=== PATIENT | female | born 1995 | race African-American/Black ===

== ENCOUNTER 2020-11-05 22:20 | Emergency (ER) | payer OTHER, SELFPAY ==
--- NOTE | 2020-11-05 | ECG_ITS ---
Test Reason : CP Blood Pressure : / mmHG Vent. Rate : 069 BPM Atrial Rate : 069 BPM P-R Int : 180 ms QRS Dur : 088 ms QT Int : 378 ms P-R-T Axes : 052 061 042 degrees QTc Int : 405 ms Normal sinus rhythm Normal ECG No previous ECGs available Referred By: Generic ED Physician Electronically Signed By:SANDI PALOMARES
--- NOTE | ~2020-11-05 | XR_ITS ---
EXAMINATION: XR CHEST CLINICAL INFORMATION: Shortness of breath and chest pain COMPARISON: None TECHNIQUE: Frontal view of the chest was obtained. FINDINGS: Question of an approximately 13 mm well-defined nonspecific nodule right upper lobe. No acute abnormality is noted involving the heart, lungs, mediastinum, bony thorax or soft tissues. XR/XR chest 1V IMPRESSION: No acute chest pathology. Question of an 13 mm nodule right upper lobe as above. Recommend elective CT for further assessment.
[2020-11-05 22:34] VITALS: BP 112/69; PULSE 74; RESP 16; TEMP 36; O2SAT 99; BMI 31.7
[2020-11-05 23:12] LABS: MANUAL DIFF FLAG NO
[2020-11-05 23:13] LABS: Basophils Percent Auto 0.4 % (0-2); Eosinophils Percent Auto 0.5 % (0-4); Hematocrit 35.5 % (37-47); Hemoglobin 11.8 g/dl (12.0-16.0); Imm Gran Abs Auto 0.01 X10*3/uL (0.00-0.03); Imm Gran Pct Auto 0.1 % (0.0-0.4); Lymphocytes Percent Auto 47.6 % (20-40); Mean Corpuscular HGB Conc 33.2 g/dl (31.0-35.0); Mean Corpuscular Hemoglobin 26.6 pg (27.0-33.0); Mean Platelet Volume 8.3 fL (9.4-12.3); Monocytes Absolute Auto 0.7 X10*3/uL (0.1-1.2); Monocytes Percent Auto 8.3 % (2-11); Neutrophils Absolute Auto 3.6 X10*3/uL (2.0-8.3); Neutrophils Percent Auto 43.1 % (45-73); Platelet Count 353 X10*3/uL (160-400); Red Blood Count 4.44 X10*6/uL (4.20-5.50); Red Cell Distribution Width 12.4 % (11.0-16.0); White Blood Count 8.3 X10*3/uL (4.8-10.8)
[2020-11-05 23:29] LABS: Anion Gap 10 (12-20); Blood Urea Nitrogen 13 mg/dL (9-16); Calcium 9.6 mg/dL (8.4-10.2); Carbon Dioxide 24 mmol/L (22-29); Chloride 109 mmol/L (96-108); Creatinine Clr Calc Pharmacy 119.6; Estimated Glomerular Filt Rate > 60; Glucose Random 94 mg/dL (60-115); Potassium 3.8 mmol/L (3.3-5.1); Sodium 139 mmol/L (135-145)
[2020-11-05 23:34] LABS: Troponin-I High Sensitivity < 3.5 ng/L (<3.5-17.0)
[2020-11-06 00:36] VITALS: BP 123/77; PULSE 63; RESP 16; O2SAT 99
[2020-11-06] MEDS: Ibuprofen 600 MG TABLET PO (00:39)
--- NOTE | 2020-11-06 00:53 | ED_ITS ---
HPI - Chest Pain General Chief Complaint: Chest Pain Stated Complaint: cp, diff breathing Time Seen by Provider: 11/06/20 00:15 Source: patient Mode of arrival: ambulatory Limitations: no limitations History of Present Illness HPI narrative: 25 y/o healthy female presenting with substernal chest pain and SOB that started at 7pm this evening. She reports the pain is central and does not radiate. She is slightly short of breath when it started but that has improved. She laid down for an hour but the pain didnt improve so she came to the ER for evaluation. Pain improved from a 9/10 to a 5/10. It is worse with mov ement. No N/V/D, abd pain, diaphoresis. No personal or family hx blood clots. Not on OCP. MD complaint: chest pain Onset (ago): hour(s) (4) Timing of current episode: constant Onset: during rest Pain location: substernal Pain radiation: none Severity: moderate Quality: aching Relieving factors: nothing Exacerbating factors: movement Treatment prior to arrival: none Risk Factors Coronary artery disease risk factors: none Thoracic aortic dissection risk factors: none Related Data On Oral Contraceptives: No Allergies Allergy/AdvReac Type Severity Reaction Status Date / Time No Known Allergies Allergy Unverified 11/05/20 22:41 [No Known Allergies*] Review of Systems Review of Systems: Constitutional: No Fever, No Chills ENT/Mouth: No sore throat, No Rhinorrhea, No Swallowing Difficulty Cardiovascular: + Chest Pain, + SOB, No Orthopnea, No Edema Respiratory: No Cough, No Sputum, No Wheezing, No dyspnea Gastrointestinal: No Nausea, No Vomiting, No Diarrhea, No abdominal Pain Genitourinary: No Dysuria, No Urinary Frequency, No Hematuria Musculoskeletal: No joint pain, No Myalgias Skin: No Skin Lesions, No rash Neuro: No Weakness, No Numbness, No Dizziness, + Headache Psych: + Anxiety/Panic, No Depression Heme/Lymph: No Bruising, No Lymphadenopathy PMFSH Past Medical History Attestation statement: The following information was validated with the patient. Medical History (Updated 11/06/20 @ 01:48 by RAJINDER Nichols) No known health problems Social History Social History Advance Directives: No Advance Directives Information Provided: No Patient : No Physical Exam Vital Signs: Vital Signs: Last Vital Signs Temp 96.8 F 11/05/20 22:34 Pulse 63 11/06/20 00:36 Resp 16 11/06/20 00:36 BP 123/77 11/06/20 00:36 Pulse Ox 99 11/06/20 00:36 Body Mass Index 31.7 Appearance: Alert. Oriented X3. No acute distress. Eyes: Pupils equal, round and reactive to light. ENT: Pharynx normal. Neck: Normal inspection. Neck supple. CVS: Normal heart rate and rhythm. Pulses normal. Respiratory: No respiratory distress. Breath sounds normal. Mild central chest wall tenderness. Abdomen: Soft and nontender. +BS x4 Skin: Skin warm and dry. Normal skin color. Normal skin turgor. No rashes. Extremities: No lower extremity edema. Neuro: Oriented X 3. No motor deficit. No sensory deficit. Course Course Course Narrative: 25 y/o female presenting with nonradiating central chest pain for the last few hours, worse with movement. Slight SOB with increased stress at home. She is in no resp distress and vitals are stable. CXR, EKG, labs ordered. Reevaluation(s) Reevaluation #1: CXR No acute chest pathology. Question of an 13 mm nodule right upper lobe as above. Recommend elective CT for further assessment. Results d/w patient. DDIMER negative. Troponin negative. EKG normal. Pain improved with motrin. Sleeping comfortably. Stable for d/c home with trial of NSAIDS. She will f/u with PCP for repeat CXR vs CT chest, not likely to be causing her any pain. MDM - Chest Pain Medical Records Data Attestation: I reviewed the patient's medical records. Lab Data Attestation: I reviewed the patient's lab results. Result diagrams: 11/05/20 23:07 11/05/20 23:07 Labs: Lab Results 11/05/20 11/05/20 11/05/20 Range/Units 23:07 23:07 23:07 WBC 8.3 (4.8-10.8) X10*3/uL RBC 4.44 (4.20-5.50) X10*6/uL Hgb 11.8 L (12.0-16.0) g/dl Hct 35.5 L (37-47) % MCV 80.0 (80-98) fL MCH 26.6 L (27.0-33.0) pg MCHC 33.2 (31.0-35.0) g/dl RDW 12.4 (11.0-16.0) % Plt Count 353 (160-400) X10*3/uL MPV 8.3 L (9.4-12.3) fL Immature Gran % (Auto) 0.1 (0.0-0.4) % Neut % (Auto) 43.1 L (45-73) % Lymph % (Auto) 47.6 H (20-40) % [place] % (Auto) 8.3 (2-11) % Eos % (Auto) 0.5 (0-4) % Baso % (Auto) 0.4 (0-2) % Lymph # (Auto) 4.0 (1.2-4.9) X10*3/uL [place] # (Auto) 0.7 (0.1-1.2) X10*3/uL Eos # (Auto) 0.0 (0.0-0.4) X10*3/uL Baso # (Auto) 0.0 (0.0-0.2) X10*3/uL Abs Immat Gran (auto) 0.01 (0.00-0.03) X10*3/uL Absolute Neuts (auto) 3.6 (2.0-8.3) X10*3/uL Absolute Nucleated RBC 0.000 (0.0-0.012) X10*3/uL Nucleated RBC % (auto) 0.0 (0.0-0.2) /100WBC D-Dimer NG/ML Sodium 139 (135-145) mmol/L Potassium 3.8 (3.3-5.1) mmol/L Chloride 109 H (96-108) mmol/L Carbon Dioxide 24 (22-29) mmol/L Anion Gap 10 L (12-20) BUN 13 (9-16) mg/dL Creatinine 0.74 (0.5-1.4) mg/dL Estim Creat Clear Calc 119.6 Estimated GFR > 60 Random Glucose 94 (60-115) mg/dL Calcium 9.6 (8.4-10.2) mg/dL Troponin I High Sens < 3.5 (<3.5-17.0) ng/L COVID-19 (RYAN) (Negative) COVID-19 Clin Com 11/06/20 11/06/20 Range/Units 00:45 00:46 WBC (4.8-10.8) X10*3/uL RBC (4.20-5.50) X10*6/uL Hgb (12.0-16.0) g/dl Hct (37-47) % MCV (80-98) fL MCH (27.0-33.0) pg MCHC (31.0-35.0) g/dl RDW (11.0-16.0) % Plt Count (160-400) X10*3/uL MPV (9.4-12.3) fL Immature Gran % (Auto) (0.0-0.4) % Neut % (Auto) (45-73) % Lymph % (Auto) (20-40) % [place] % (Auto) (2-11) % Eos % (Auto) (0-4) % Baso % (Auto) (0-2) % Lymph # (Auto) (1.2-4.9) X10*3/uL [place] # (Auto) (0.1-1.2) X10*3/uL Eos # (Auto) (0.0-0.4) X10*3/uL Baso # (Auto) (0.0-0.2) X10*3/uL Abs Immat Gran (auto) (0.00-0.03) X10*3/uL Absolute Neuts (auto) (2.0-8.3) X10*3/uL Absolute Nucleated RBC (0.0-0.012) X10*3/uL Nucleated RBC % (auto) (0.0-0.2) /100WBC D-Dimer 223 NG/ML Sodium (135-145) mmol/L Potassium (3.3-5.1) mmol/L Chloride (96-108) mmol/L Carbon Dioxide (22-29) mmol/L Anion Gap (12-20) BUN (9-16) mg/dL Creatinine (0.5-1.4) mg/dL Estim Creat Clear Calc Estimated GFR Random Glucose (60-115) mg/dL Calcium (8.4-10.2) mg/dL Troponin I High Sens (<3.5-17.0) ng/L COVID-19 (RYAN) Negative (Negative) COVID-19 Clin Com See Note ECG Data ECG #1: Attestation: I personally reviewed and interpreted this ECG as follows: ECG interpretation date: 11/06/20 ECG interpretation time: 02:01 Interpretation: normal sinus rhythm, HR 69 bpm, normal FL interval, normal QRS, no ST segment elevations or depressions Scores Heart Score History: -0- slightly suspicious ECG: -0- normal Age: -0- < or = 45 Risk factory: -0- no risk factors known Troponin: -0- < or = normal limit Score: 0 Risk: 1.7% Discharge Plan Discharge Clinical Impression: Chest pain Qualifiers: Chest pain type: other chest pain Qualified Code(s): R07.89 - Other chest pain Patient Disposition: Home, Self-Care Instructions: Chest Pain (ED) Additional Instructions: Your lab workup today was normal. Your chest x-ray showed a question of a possible nodule. Recommend following up with your doctor for repeat chest x-ray or CAT scan in the future. Recommend rest. No heavy lifting. Your pain may be muscular Take Motrin and/or Tylenol as needed for pain. Follow up with your doctor this week. If you develop new or worsening symptoms call 911 or come back to the ER for further evaluation.
[2020-11-06 01:10] LABS: COVID-19 Test Negative (Negative); IDNOW Serial# 08D9AD1C
[2020-11-06 01:16] LABS: D Dimer 223 NG/ML
--- NOTE | 2020-11-06 02:03 | PC.NURSE ---
PT RESTING IN BED, REPORTS PAIN IS ALMOST RESOLVED. PT RESTING ON STRETCHER IN LLR POSITION. NO REPORT OF DYSPNEA OR NAUSEA.
== END 2020-11-06 02:04 | disposition home or self-care (01) ==
PROVIDERS: Physician Assistant; Emergency Provider Internal Medicine
DX: R07.89 Other chest pain (principal); Z20.822 Contact with and (suspected) exposure to COVID-19; R06.02 Shortness of breath
CPT/HCPCS: 36415; 71045; 80048; 84484; 85025; 85379; 87635; 93005; 99284

== ENCOUNTER 2022-05-25 23:38 | Emergency (ER) | payer OTHER, SELFPAY ==
--- NOTE | ~2022-05-25 | XR_ITS ---
EXAMINATION: XR CHEST CLINICAL INFORMATION: Shortness of breath COMPARISON: 11/05/2020 TECHNIQUE: 2 views of the chest were obtained. FINDINGS: No significant abnormality is noted involving the heart, lungs, mediastinum, bony thorax or soft tissues. Previously seen 13 mm right upper lobe nodule is not seen on the current exam. XR/XR chest 2V IMPRESSION: No acute intrathoracic disease.
[2022-05-25 23:46] VITALS: BP 109/74; PULSE 116; RESP 16; TEMP 36.6; O2SAT 98; BMI 30.9
--- OUTSIDE RECORDS SUMMARY | 2022-05-26 00:15 | XMS_ITS | Continuity of Care Document ---
Author Name Unknown Organization [facility] Address [address] [place] [address]- Care Team Providers Care Environmental Services Associate Name Role Phone Janessa Rowland MD Primary Care Physician [phone] Encounter [facility] [place] Date(s): 05/17/20 - 06/16/[address] [address]- Attending Physician: Gideon Davis Admitting Physician: AdmtrGideon Referring Physician: Admtr, Gideon Allergies, Adverse Reactions, Alerts Substance Reaction Severity Status NKA Active Medications acetaminophen 325 mg oral tablet 650 mg, By Mouth, Every 4 hours, PRN, (1-3), may give 325mg per patient preference and re-dose [id number] within 4 hours, if needed. Patient should only receive a total of 650mg of Acetaminophen every 4 hours., # 40 tablet, Refills 0, Tot. Refills 0... Start Date: 12/24/19 Status: Ordered docusate sodium 100 mg oral capsule 100 mg, 1, capsule, By Mouth, 2 times a day, # 60 capsule, Refills 0, Tot. Refills 0, Maintenance, 12/24/19 6:46:00 EDT, Route to Pharmacy Electronically, [facility] #[id number], 162, cm, 12/24/19 1:10:00 EDT, Height, 95.5, kg, 12/22/19 23:12:00... Start Date: 12/24/19 Status: Ordered ibuprofen 800 mg oral tablet 800 mg, 1, tablet, By Mouth, Every 8 hours, PRN, (4-6), may give 400mg per patient preference and re-dose with 400mg within 8 hours if needed. Patient should only receive a total of 800mg of Ibuprofen every 8 hours., # 30 tablet, Refills 0, Tot. Ref... Start Date: 12/24/19 Status: Ordered MiraLax oral powder for reconstitution = 17 Gm, By Mouth, Daily, PRN Constipation, dissolve in water before taking, # 527 Gm, 0 Refills, Maintenance, 10/28/19 10:57:00 EDT, REC Powder, [facility] #[id number], 17 Gm By Mouth Daily,PRN:Constipation,Instr:dissolve in water before taking,... Start Date: 10/28/19 Status: Ordered Multivitamins with Folic Acid 1 mg oral capsule See Instructions, TAKE ONE DAILY BY MOUTH, # 100 capsule, 2 Refills, Maintenance, 04/28/19 14:25:00EST, [facility] #[id number], TAKE ONE DAILY BY MOUTH, 163, cm, 10/19/18 12:36:00 EDT, Height, 90, kg, 09/05/18 5:39:00 EDT, Dry Weight Start Date: 04/28/19 Status: Ordered Proctozone HC 2.5% topical cream 1 applicator, Topically, 3 times a day, apply in a thin film to the affected skin and rub in gentlyand completely, # 30 Gm, 0 Refills, Maintenance, 10/28/19 11:00:00 EDT, [facility] #[id number], 1 applicator Topically 3 times a day,Instr:apply i... Start Date: 10/28/19 Status: Ordered Valtrex 500 mg oral tablet 500 mg, 1, tablet, By Mouth, Every 12 hours, # 60 tablet, Refills 0, Tot. Refills 0, Maintenance, 12/02/19 10:21:00 EDT, Route to Pharmacy Electronically, [facility] #[id number], 163, cm, 12/02/19 9:52:00 EDT, Height, 90, kg, 09/05/18 5:39:00 EDT... Start Date: 12/02/19 Status: Ordered Problem List Condition Effective Dates Status Health Status Inform ant H/O seasonal allergies(Confirmed) Active Constipation(Confirmed) Active Advent or spiritual belie fs affecting medical care(Confirmed) Active History of polyhydramnios(Confirmed) Active Hemorrhoid(Confirmed) Active Currently (Confirmed) Active H/O Maternal varicella(Confirmed) 01/2018 Active Social History Social History Type Response Smoking Status Former smoker, quit more than 30 days ago entered on: 09/04/18 Sex Female
--- OUTSIDE RECORDS SUMMARY | 2022-05-26 00:15 | XMS_ITS | Continuity of Care Document ---
Author Name Unknown Organization [facility] Address [address] [place] [address]- Care Team Providers Care Hydraulic Assembler Name Role Phone Janessa Rowland MD Primary Care Physician [phone] [place] [facility] [place] 03/15/20 - 04/15/20 [facility] [address] [place] [address]- Attending Physician: Iftikhar GIANG, Sravan James Allergies, Adverse Reactions, Alerts Substance Reaction Severity Status NKA Active Medications acetaminophen 325 mg oral tablet 650 mg, By Mouth, Every 4 hours, PRN, (1-3), may give 325mg per patient preference and re-dose [id number] within 4 hours, if needed. Patient should only receive a total of 650mg of Acetaminophen every 4 hours., # 40 tablet, Refills 0, Tot. Refills 0... Start Date: 12/24/19 Status: Ordered docusate sodium 100 mg oral capsule 100 mg, 1, capsule, By Mouth, 2 times a day, # 60 capsule, Refills 0, Tot. Refills 0, Maintenance, 12/24/19 6:46:00 EDT, Route to Pharmacy Electronically, [facility] #[id number], 162, cm, 12/24/19 1:10:00 EDT, Height, 95.5, [...] Refills, Maintenance, 10/28/19 10:57:00 EDT, REC Powder, [facility] #[id number], 17 Gm By Mouth Daily,PRN:Constipation,Instr:dissolve in water before taking,... Start Date: 10/28/19 Status: Ordered Multivitamins with Folic Acid 1 mg oral capsule See Instructions, TAKE ONE DAILY BY MOUTH, # 100 capsule, 2 Refills, Maintenance, 04/28/19 14:25:00EST, [facility] #[id number], TAKE ONE DAILY BY MOUTH, 163, cm, 10/19/18 12:36:00 EDT, Height, 90, kg, 09/05/18 5:39:00 EDT, Dry Weight Start Date: 04/28/19 Status: Ordered Proctozone HC 2.5% topical cream 1 applicator, Topically, 3 times a day, apply in a thin film to the affected skin and rub in gentlyand completely, # 30 Gm, 0 Refills, Maintenance, 10/28/19 11:00:00 EDT, [facility] #[id number], 1 applicator Topically 3 times a day,Instr:apply i... Start Date: 10/28/19 Status: Ordered Valtrex 500 mg oral tablet 500 mg, 1, tablet, By Mouth, Every 12 hours, # 60 tablet, Refills 0, Tot. Refills 0, Maintenance, 12/02/19 10:21:00 EDT, Route to Pharmacy Electronically, [facility] #[id number], 163, cm, 12/02/19 9:52:00 EDT, Height, 90, kg, 09/05/18 5:39:00 EDT... Start Date: 12/02/19 Status: Ordered Problem List Condition Effective Dates Status Health Status Inform ant H/O seasonal allergies(Confirmed) Active Constipation(Confirmed) Active Mu-Ism or spiritual belie fs affecting medical care(Confirmed) Active History of polyhydramnios(Confirmed) Active Hemorrhoid(Confirmed) Active Currently (Confirmed) Active H/O Maternal varicella(Confirmed) 01/2018 Active Social History Social History Type Response Smoking Status Former smoker, quit more than 30 days ago entered on: 09/04/18 Sex Female
--- OUTSIDE RECORDS SUMMARY | 2022-05-26 00:15 | XMS_ITS | Continuity of Care Document ---
Author Name Unknown Organization [facility] Address [address] [place] [address]- Care Team Providers Care Mold Washer Name Role Phone Janessa Rowland MD Primary Care Physician [phone] Encounter [facility] [place] Date(s): 03/15/20 - 04/14/20 [facility] [address] [place] [address]- Allergies, Adverse Reactions, Alerts Substance Reaction Severity Status NKA Active Medications acetaminophen 325 mg oral tablet 650 mg, By Mouth, Every 4 hours, PRN, (1-3), may give 325mg per patient preference and re-dose [id number] within 4 hours, if needed. Patient should only receive a total of 650mg of Acetaminophen every 4 hours., # 40 tablet, Refills 0, Tot. Refills 0... Start Date: 12/24/19 Status: Ordered docusate sodium 100 mg oral capsule 100 mg, 1, capsule, By Mouth, 2 times a day, # 60 capsule, Refills 0, Tot. Refills 0, Maintenance, 12/24/19 6:46:00 EDT, Route to Pharmacy Electronically, [facility] #[id number], 162, cm, 12/24/19 1:10:00 EDT, Height, 95.5, [...] Refills, Maintenance, 10/28/19 10:57:00 EDT, REC Powder, [facility] #[id number], 17 Gm By Mouth Daily,PRN:Constipation,Instr:dissolve in water before taking,... Start Date: 10/28/19 Status: Ordered Multivitamins with Folic Acid 1 mg oral capsule See Instructions, TAKE ONE DAILY BY MOUTH, # 100 capsule, 2 Refills, Maintenance, 04/28/19 14:25:00EST, [facility] #[id number], TAKE ONE DAILY BY MOUTH, 163, cm, 10/19/18 12:36:00 EDT, Height, 90, kg, 09/05/18 5:39:00 EDT, Dry Weight Start Date: 04/28/19 Status: Ordered Proctozone HC 2.5% topical cream 1 applicator, Topically, 3 times a day, apply in a thin film to the affected skin and rub in gentlyand completely, # 30 Gm, 0 Refills, Maintenance, 10/28/19 11:00:00 EDT, [facility] #[id number], 1 applicator Topically 3 times a day,Instr:apply i... Start Date: 10/28/19 Status: Ordered Valtrex 500 mg oral tablet 500 mg, 1, tablet, By Mouth, Every 12 hours, # 60 tablet, Refills 0, Tot. Refills 0, Maintenance, 12/02/19 10:21:00 EDT, Route to Pharmacy Electronically, [facility] #[id number], 163, cm, 12/02/19 9:52:00 EDT, Height, 90, kg, 09/05/18 5:39:00 EDT... Start Date: 12/02/19 Status: Ordered Problem List Condition Effective Dates Status Health Status Inform ant H/O seasonal allergies(Confirmed) Active Constipation(Confirmed) Active Buddhism or spiritual belie fs affecting medical care(Confirmed) Active History of polyhydramnios(Confirmed) Active Hemorrhoid(Confirmed) Active Currently (Confirmed) Active H/O Maternal varicella(Confirmed) 01/2018 Active Social History Social History Type Response Smoking Status Former smoker, quit more than 30 days ago entered on: 09/04/18 Sex Female
--- OUTSIDE RECORDS SUMMARY | 2022-05-26 00:15 | XMS_ITS | Continuity of Care Document ---
Author Name Unknown Organization [facility] Address [address] [place] [address]- Care Team Providers Care Education And Development Manager Name Role Phone Janessa Rowland MD Primary Care Physician Encounter [facility] [place] Date(s): 09/07/19 - 10/07/19 [facility] [address] [address]- [facility] Allergies, Adverse Reactions, Alerts Substance Reaction Severity Status NKA Active Medications Multivitamins with Folic Acid 1 mg oral capsule See Instructions, TAKE ONE DAILY BY MOUTH, # 100 capsule, 2 Refills, Maintenance, 04/28/19 14:25:00EST, [facility] #[id number], TAKE ONE DAILY BY MOUTH, 163, cm, 10/19/18 12:36:00 EDT, Height, 90, kg, 09/05/18 5:39:00 EDT, Dry Weight Start Date: 04/28/19 Status: Ordered Tylenol 325 mg oral capsule 2 capsule = 650 mg, By Mouth, Every 4 hours, PRN as needed for fever, # 90 capsule, 0 Refills, Maintenance, 09/07/18 10:54:10 EDT, Capsule Start Date: 09/07/18 Status: Ordered Problem List Condition Effective Dates Status Health Status Inform ant H/O seasonal allergies(Confirmed) Active Constipation(Confirmed) Active HSV infection(Confirmed) Active Currently (Confirmed) Active H/O Rubella non-immune status(Confirmed) 01/2018 Active H/O Maternal varicella(Confirmed) 01/2018 Active Social History Social History Type Response Smoking Status Former smoker, quit more than 30 days ago entered on: 09/04/18 Sex Female
--- OUTSIDE RECORDS SUMMARY | 2022-05-26 00:15 | XMS_ITS | Continuity of Care Document ---
Author Name Unknown Organization [facility] Address [address] [place] [address]- Care Team Providers Care Renovator Machine Operator Name Role Phone Janessa Rowland MD Primary Care Physician [place] [facility] [place] - 12/24/[address] [address]- [facility] Discharge Disposition: A-D/C Home Attending Physician: Maria De Jesus Pritchard MD Admitting Physician: Maria De Jesus Pritchard MD Referring Physician: Maria De Jesus Pritchard MD Allergies, Adverse Reactions, Alerts Substance Reaction Severity Status NKA Active Medications acetaminophen 325 mg oral tablet 650 mg, By Mouth, Every 4 hours, PRN, (1-3), may give 325mg per patient preference and re-dose [id number] within 4 hours, if needed. Patient should only receive a total of 650mg of Acetaminophen every 4 hours., # 40 tablet, Refills 0, Tot. Refills 0... Start Date: 12/24/19 Status: Ordered docusate sodium 100 mg oral capsule 100 mg, 1, capsule, By Mouth, 2 times a day, # 60 capsule, Refills 0, Tot. Refills 0, Maintenance, 12/24/19 6:46:00 EDT, Route to Pharmacy Electronically, [facility] #[id number], 162, cm, 12/24/19 1:10:00 EDT, Height, 95.5, [...] Refills, Maintenance, 10/28/19 10:57:00 EDT, REC Powder, [facility] #[id number], 17 Gm By Mouth Daily,PRN:Constipation,Instr:dissolve in water before taking,... Start Date: 10/28/19 Status: Ordered Multivitamins with Folic Acid 1 mg oral capsule See Instructions, TAKE ONE DAILY BY MOUTH, # 100 capsule, 2 Refills, Maintenance, 04/28/19 14:25:00EST, [facility] #[id number], TAKE ONE DAILY BY MOUTH, 163, cm, 10/19/18 12:36:00 EDT, Height, 90, kg, 09/05/18 5:39:00 EDT, Dry Weight Start Date: 04/28/19 Status: Ordered Proctozone HC 2.5% topical cream 1 applicator, Topically, 3 times a day, apply in a thin film to the affected skin and rub in gentlyand completely, # 30 Gm, 0 Refills, Maintenance, 10/28/19 11:00:00 EDT, [facility] #[id number], 1 applicator Topically 3 times a day,Instr:apply i... Start Date: 10/28/19 Status: Ordered Valtrex 500 mg oral tablet 500 mg, 1, tablet, By Mouth, Every 12 hours, # 60 tablet, Refills 0, Tot. Refills 0, Maintenance, 12/02/19 10:21:00 EDT, Route to Pharmacy Electronically, [facility] #[id number], 163, cm, 12/02/19 9:52:00 EDT, Height, 90, kg, 09/05/18 5:39:00 EDT... Start Date: 12/02/19 Status: Ordered Problem List Condition Effective Dates Status Health Status Inform ant H/O seasonal allergies(Confirmed) Active Constipation(Confirmed) Active Christianity or spiritual belie fs affecting medical care(Confirmed) Active History of polyhydramnios(Confirmed) Active Hemorrhoid(Confirmed) Active Currently (Confirmed) Active H/O Maternal varicella(Confirmed) 01/2018 Active Vital Signs Most recent to oldest [Reference Range]: 1 2 3 Height 162 cm (12/24/19 9:30 AM) 162 cm (12/24/19 12:00 AM) 162 cm (12/23/19 3:55 PM) Weight 95.5 kg (12/22/19 10:56 PM) Oxygen Saturation [94-100 %] 96 % (12/24/19 12:00 AM) 99 % (12/23/19 3:30 AM) Pulse Rate [55-90 bpm] 86 bpm (12/24/19 9:30 AM) 85 bpm (12/24/19 12:00 AM) 88 bpm (12/23/19 3:55 PM) Body Mass Index [18.5-24.99] 36.39 *>HHI* (12/22/19 10:56 PM) Blood Pressure [90-138/55-84 mm Hg] 122/76mm Hg (12/24/19 9:30 AM) 118/71mm Hg (12/24/19 12:00 AM) 117/65mm Hg (12/23/19 3:55 PM) Respiratory Rate [16-30 br/min] 18 br/min (12/24/19 9:30 AM) 18 br/min (12/24/19 2:35 AM) 18 br/min (12/24/19 2:35 AM) Temperature [96.8-100.4 DegF] 98.4 DegF (12/24/19 9:30 AM) 98.0 DegF (12/24/19 12:00 AM) 97.8 DegF (12/23/19 3:55 PM) Mode of Delivery (Oxygen) Room air (12/24/19 12:00 AM) Room air (12/23/19 3:30 AM) Room air (12/22/19 9:38 PM) Blood pressure sites Arm, right (12/23/19 3:55 PM) Arm, right (12/23/19 9:30 AM) Arm, right (12/22/19 10:56 PM) Temperature Route Oral (12/24/19 9:30 AM) Oral (12/24/19 12:00 AM) Oral (12/23/19 3:55 PM) Dry Weight 95.5 kg (12/22/19 10:56 PM) Social History Social History Type Response Smoking Status Former smoker, quit more than 30 days ago entered on: 09/04/18 Sex Female
--- OUTSIDE RECORDS SUMMARY | 2022-05-26 00:15 | XMS_ITS | Continuity of Care Document ---
Author Name Unknown Organization [facility] Address [address] [place] [address]- Care Team Providers Care Molding Utility Worker Name Role Phone Janessa Rowland MD Primary Care Physician [phone] [place] [facility] [place] - 03/03/[address] [address]- Attending Physician: Gideon Davis Admitting Physician: Gideon Davis Referring Physician: Gideon Davis Allergies, Adverse Reactions, Alerts Substance Reaction Severity Status NKA Active Medications acetaminophen 325 mg oral tablet 650 mg, By Mouth, Every 4 hours, PRN, (1-3), may give 325mg per patient preference and re-dose [id number] within 4 hours, if needed. Patient should only receive a total of 650mg of Acetaminophen every 4 hours., # 40 tablet, Refills 0, Tot. Refills 0... Start Date: 12/24/19 Status: Ordered docusate sodium 100 mg oral capsule 100 mg, 1, capsule, By Mouth, 2 times a day, # 60 capsule, Refills 0, Tot. Refills 0, Maintenance, 12/24/19 6:46:00 EDT, Route to Pharmacy Electronically, [facility] #[id number], 162, cm, 12/24/19 1:10:00 EDT, Height, 95.5, [...] Refills, Maintenance, 10/28/19 10:57:00 EDT, REC Powder, [facility] #[id number], 17 Gm By Mouth Daily,PRN:Constipation,Instr:dissolve in water before taking,... Start Date: 10/28/19 Status: Ordered Multivitamins with Folic Acid 1 mg oral capsule See Instructions, TAKE ONE DAILY BY MOUTH, # 100 capsule, 2 Refills, Maintenance, 04/28/19 14:25:00EST, [facility] #[id number], TAKE ONE DAILY BY MOUTH, 163, cm, 10/19/18 12:36:00 EDT, Height, 90, kg, 09/05/18 5:39:00 EDT, Dry Weight Start Date: 04/28/19 Status: Ordered Proctozone HC 2.5% topical cream 1 applicator, Topically, 3 times a day, apply in a thin film to the affected skin and rub in gentlyand completely, # 30 Gm, 0 Refills, Maintenance, 10/28/19 11:00:00 EDT, [facility] #[id number], 1 applicator Topically 3 times a day,Instr:apply i... Start Date: 10/28/19 Status: Ordered Valtrex 500 mg oral tablet 500 mg, 1, tablet, By Mouth, Every 12 hours, # 60 tablet, Refills 0, Tot. Refills 0, Maintenance, 12/02/19 10:21:00 EDT, Route to Pharmacy Electronically, [facility] #[id number], 163, cm, 12/02/19 9:52:00 EDT, Height, 90, kg, 09/05/18 5:39:00 EDT... Start Date: 12/02/19 Status: Ordered Problem List Condition Effective Dates Status Health Status Inform ant H/O seasonal allergies(Confirmed) Active Constipation(Confirmed) Active Denominational or spiritual belie fs affecting medical care(Confirmed) Active History of polyhydramnios(Confirmed) Active Hemorrhoid(Confirmed) Active Currently (Confirmed) Active H/O Maternal varicella(Confirmed) 01/2018 Active Social History Social History Type Response Smoking Status Former smoker, quit more than 30 days ago entered on: 09/04/18 Sex Female
--- OUTSIDE RECORDS SUMMARY | 2022-05-26 00:15 | XMS_ITS | Continuity of Care Document ---
Author Name Unknown Organization [facility] Address [address] [place] [address]- Care Team Providers Care Acquisition Professional Name Role Phone Janessa Rowland MD Primary Care Physician Encounter [facility] [place] Date(s): 09/03/19 - 10/09/[address] [address]- [facility] Attending Physician: Carie Beltran MD Admitting Physician: Carie Beltran MD Referring Physician: Yogesh Nguyen DO Allergies, Adverse Reactions, Alerts Substance Reaction Severity Status NKA Active Medications Multivitamins with Folic Acid 1 mg oral capsule See Instructions, TAKE ONE DAILY BY MOUTH, # 100 capsule, 2 Refills, Maintenance, 04/28/19 14:25:00EST, [facility] #[id number], TAKE ONE DAILY BY MOUTH, 163, cm, [...]
--- OUTSIDE RECORDS SUMMARY | 2022-05-26 00:15 | XMS_ITS | Continuity of Care Document ---
Author Name Unknown Organization [facility] Address [address] [place] [address]- Care Team Providers Care Applications Systems Analyst Name Role Phone Janessa Rowland MD Primary Care Physician [place] [facility] [place](s[place] 09/22/19 - 01/08/[address] [address]- Attending Physician: Not on Staff, Attending MD Allergies, Adverse Reactions, Alerts Substance Reaction Severity Status NKA Active Medications acetaminophen 325 mg oral tablet 650 mg, By Mouth, Every 4 hours, PRN, (1-3), may give 325mg per patient preference and re-dose [id number] within 4 hours, if needed. Patient should only receive a total of 650mg of Acetaminophen every 4 hours., # 40 tablet, Refills 0, Tot. Refills 0... Start Date: 12/24/19 Status: Ordered docusate sodium 100 mg oral capsule 100 mg, 1, capsule, By Mouth, 2 times a day, # 60 capsule, Refills 0, Tot. Refills 0, Maintenance, 12/24/19 6:46:00 EDT, Route to Pharmacy Electronically, [facility] #[id number], 162, cm, 12/24/19 1:10:00 EDT, Height, 95.5, [...] Refills, Maintenance, 10/28/19 10:57:00 EDT, REC Powder, [facility] #[id number], 17 Gm By Mouth Daily,PRN:Constipation,Instr:dissolve in water before taking,... Start Date: 10/28/19 Status: Ordered Multivitamins with Folic Acid 1 mg oral capsule See Instructions, TAKE ONE DAILY BY MOUTH, # 100 capsule, 2 Refills, Maintenance, 04/28/19 14:25:00EST, [facility] #[id number], TAKE ONE DAILY BY MOUTH, 163, cm, 10/19/18 12:36:00 EDT, Height, 90, kg, 09/05/18 5:39:00 EDT, Dry Weight Start Date: 04/28/19 Status: Ordered Proctozone HC 2.5% topical cream 1 applicator, Topically, 3 times a day, apply in a thin film to the affected skin and rub in gentlyand completely, # 30 Gm, 0 Refills, Maintenance, 10/28/19 11:00:00 EDT, [facility] #[id number], 1 applicator Topically 3 times a day,Instr:apply i... Start Date: 10/28/19 Status: Ordered Valtrex 500 mg oral tablet 500 mg, 1, tablet, By Mouth, Every 12 hours, # 60 tablet, Refills 0, Tot. Refills 0, Maintenance, 12/02/19 10:21:00 EDT, Route to Pharmacy Electronically, [facility] #[id number], 163, cm, 12/02/19 9:52:00 EDT, Height, 90, kg, 09/05/18 5:39:00 EDT... Start Date: 12/02/19 Status: Ordered Problem List Condition Effective Dates Status Health Status Inform ant H/O seasonal allergies(Confirmed) Active Constipation(Confirmed) Active Methodist or spiritual belie fs affecting medical care(Confirmed) Active History of polyhydramnios(Confirmed) Active Hemorrhoid(Confirmed) Active Currently (Confirmed) Active H/O Maternal varicella(Confirmed) 01/2018 Active Social History Social History Type Response Smoking Status Former smoker, quit more than 30 days ago entered on: 09/04/18 Sex Female
--- OUTSIDE RECORDS SUMMARY | 2022-05-26 00:15 | XMS_ITS | Continuity of Care Document ---
Author Name Unknown Organization [facility] Address [address] [place] [address]- Care Team Providers Care Manager Mining Name Role Phone Janessa Rowland MD Primary Care Physician [phone] [facility] [place] Date(s): 05/31/19 - 06/10/[address] [facility] [address] [place] [address]- [facility] Attending Physician: Gideon Davis Admitting Physician: Gideon Davis Referring Physician: AdmtrGideon Allergies, Adverse Reactions, Alerts Substance Reaction Severity Status NKA Active Medications ibuprofen 800 mg oral tablet 800 mg, 1, tablet, By Mouth, 3 times a day, # 90 tablet, Refills 0, Tot. Refills 0, Maintenance, 09/07/18 10:54:07 EDT, Print Requisition Start Date: 09/07/18 Status: Ordered Multivitamins with Folic Acid 1 mg oral capsule See Instructions, TAKE ONE DAILY BY MOUTH, # 100 capsule, 2 Refills, Maintenance, 04/28/19 14:25:00[facility] #[id number], TAKE ONE DAILY BY MOUTH, 163, cm, 10/19/18 12:36:00 EDT, Height, 90, kg, 09/05/18 5:39:00 EDT, Dry Weight Start Date: 04/28/19 Status: Ordered Multivitamins with Folic Acid 1 mg oral tablet 1 tablet, By Mouth, Daily, # 30 tablet, 0 Refills, Maintenance, 06/25/18 8:16:28 EDT, Tablet Start Date: 06/25/18 Status: Ordered Tylenol 325 mg oral capsule 2 capsule = 650 mg, By Mouth, Every 4 hours, PRN as needed for fever, # 90 capsule, 0 Refills, Maintenance, 09/07/18 10:54:10 EDT, Capsule Start Date: 09/07/18 Status: Ordered Problem List Condition Effective Dates Status Health Status Inform ant H/O seasonal allergies(Confirmed) Active Constipation(Confirmed) Active H/O hemorrhoids(Confirmed) Active Genital herpes in women(Confirmed) 1 Active H/O Rubella non-immune status(Confirmed) 01/2018 Active H/O Maternal varicella(Confirmed) 01/2018 Active 1In 2011 Social History Social History Type Response Smoking Status Former smoker, quit more than 30 days ago entered on: 09/04/18 Sex
--- OUTSIDE RECORDS SUMMARY | 2022-05-26 00:15 | XMS_ITS | Continuity of Care Document ---
Author Name Unknown Organization [facility] Address [address] [place] [address]- Care Team Providers Care Extrusion Die Repairer Name Role Phone Janessa Rowland MD Primary Care Physician [id number] Date(s): 09/22/19 - 12/08/19 [facility] [address] [address]- [facility] Attending Physician: Not on Staff, Attending MD Referring Physician: Janessa Rowland MD Allergies, Adverse Reactions, Alerts Substance Reaction Severity Status NKA Active Medications MiraLax oral powder for reconstitution = 17 Gm, By Mouth, Daily, PRN Constipation, dissolve in water before taking, # 527 Gm, 0 Refills, Maintenance, 10/28/19 10:57:00 EDT, REC Powder, [facility] #[id number], 17 Gm By Mouth Daily,PRN:Constipation,Instr:dissolve in water before taking,... Start Date: 10/28/19 Status: Ordered Multivitamins with Folic Acid 1 mg oral capsule See Instructions, TAKE ONE DAILY BY MOUTH, # 100 capsule, 2 Refills, Maintenance, 04/28/19 14:25:00EST, [facility] #[id number], TAKE ONE DAILY BY MOUTH, 163, cm, 10/19/18 12:36:00 EDT, Height, 90, kg, 09/05/18 5:39:00 EDT, Dry Weight Start Date: 04/28/19 Status: Ordered Proctosol-HC 2.5% topical cream 1 applicator, Topically, 3 times a day, # 20 Gm, 0 Refills, Maintenance, 11/26/19 22:36:00 EDT, [facility] #[id number], 1 applicator Topically 3 times a day, 163, cm, 11/10/19 10:22:00 EDT, Height, 90, kg, 09/05/18 5:39:00 EDT, Dry Weight Start Date: 11/26/19 Status: Ordered Proctozone HC 2.5% rectal cream with applicator 1 application, Rectally, 2 times a day, # 30 Gm, 0 Refills, Maintenance, 11/26/19 22:35:00 EDT, Cream, [facility] #[id number], 1 application Rectally 2 times a day, 163, cm, 11/10/19 10:22:00 EDT, Height, 90, kg, 09/05/18 5:39:00 EDT, Dry Weight Start Date: 11/26/19 Status: Ordered Proctozone HC 2.5% topical cream 1 applicator, Topically, 3 times a day, apply in a thin film to the affected skin and rub in gentlyand completely, # 30 Gm, 0 Refills, Maintenance, 10/28/19 11:00:00 EDT, [facility] #[id number], 1 applicator Topically 3 times a day,Instr:apply i... Start Date: 10/28/19 Status: Ordered Tylenol 325 mg oral capsule 2 capsule = 650 mg, By Mouth, Every 4 hours, PRN as needed for fever, # 90 capsule, 0 Refills, Maintenance, 09/07/18 10:54:10 EDT, Capsule Start Date: 09/07/18 Status: Ordered Valtrex 500 mg oral tablet 500 mg, 1, tablet, By Mouth, Every 12 hours, # 60 tablet, Refills 0, Tot. Refills 0, Maintenance, 12/02/19 10:21:00 EDT, Route to Pharmacy Electronically, [facility] #[id number], 163, cm, 12/02/19 9:52:00 EDT, Height, 90, kg, 09/05/18 5:39:00 EDT... Start Date: 12/02/19 Status: Ordered witch jena 50% topical pad 1 each, Topically, 4 times a day, # 100 each, 0 Refills, Acute 01/03/20 10:13:00 EST, 12/02/19 10:13:00 EDT, [facility] #[id number], 1 each Topically 4 times a day, 163, cm, 12/02/19 9:52:00 EDT, Height, 90, kg, 09/05/18 5:39:00 EDT, Dry Weight Start Date: 12/02/19 Stop Date: 01/03/20 Status: Ordered Problem List Condition Effective Dates Status Health Status Inform ant H/O seasonal allergies(Confirmed) Active Constipation(Confirmed) Active Quaker or spiritual belie fs affecting medical care(Confirmed) Active History of polyhydramnios(Confirmed) Active Hemorrhoid(Confirmed) Active History of herpes genitalis(Confirmed) Active Currently (Confirmed) Active H/O Rubella non-immune status(Confirmed) 01/2018 Active H/O Maternal varicella(Confirmed) 01/2018 Active Social History Social History Type Response Smoking Status Former smoker, quit more than 30 days ago entered on: 09/04/18 Sex Female
--- OUTSIDE RECORDS SUMMARY | 2022-05-26 00:15 | XMS_ITS | Continuity of Care Document ---
Author Name Unknown Organization [facility] Address [address] [place] [address]- Care Team Providers Care Automobile And Property Underwriter Name Role Phone Janessa Rowland MD Primary Care Physician [phone] [place] [facility] [place] 03/28/20 - 04/27/[address] [address]- Allergies, Adverse Reactions, Alerts Substance Reaction Severity Status NKA Active Medications acetaminophen 325 mg oral tablet 650 mg, By Mouth, Every 4 hours, PRN, (1-3), may give 325mg per patient preference and re-dose [id number] within 4 hours, if needed. Patient should only receive a total of 650mg of Acetaminophen every 4 hours., # 40 tablet, Refills 0, Tot. Refills 0... Start Date: 12/24/19 Status: Ordered docusate sodium 100 mg oral capsule 100 mg, 1, capsule, By Mouth, 2 times a day, # 60 capsule, Refills 0, Tot. Refills 0, Maintenance, 12/24/19 6:46:00 EDT, Route to Pharmacy Electronically, [facility] #[id number], 162, cm, 12/24/19 1:10:00 EDT, Height, 95.5, [...] Refills, Maintenance, 10/28/19 10:57:00 EDT, REC Powder, [facility] #[id number], 17 Gm By Mouth Daily,PRN:Constipation,Instr:dissolve in water before taking,... Start Date: 10/28/19 Status: Ordered Multivitamins with Folic Acid 1 mg oral capsule See Instructions, TAKE ONE DAILY BY MOUTH, # 100 capsule, 2 Refills, Maintenance, 04/28/19 14:25:00EST, [facility] #[id number], TAKE ONE DAILY BY MOUTH, 163, cm, 10/19/18 12:36:00 EDT, Height, 90, kg, 09/05/18 5:39:00 EDT, Dry Weight Start Date: 04/28/19 Status: Ordered Proctozone HC 2.5% topical cream 1 applicator, Topically, 3 times a day, apply in a thin film to the affected skin and rub in gentlyand completely, # 30 Gm, 0 Refills, Maintenance, 10/28/19 11:00:00 EDT, [facility] #[id number], 1 applicator Topically 3 times a day,Instr:apply i... Start Date: 10/28/19 Status: Ordered Valtrex 500 mg oral tablet 500 mg, 1, tablet, By Mouth, Every 12 hours, # 60 tablet, Refills 0, Tot. Refills 0, Maintenance, 12/02/19 10:21:00 EDT, Route to Pharmacy Electronically, [facility] #[id number], 163, cm, 12/02/19 9:52:00 EDT, Height, 90, [...]
--- OUTSIDE RECORDS SUMMARY | 2022-05-26 00:15 | XMS_ITS | Continuity of Care Document ---
Author Name Unknown Organization [facility] Address [address] [place] [address]- Care Team Providers Care Pin Feather Machine Operator Name Role Phone Janessa Rowland MD Primary Care Physician Encounter [facility] Date(s): 04/28/19 - 06/11/[address] [address]- [facility] Attending Physician: Not on Staff, Attending [...] # 100 capsule, 2 Refills, Maintenance, 04/28/19 14:25:00[facility], [facility] #[id number], TAKE ONE DAILY BY MOUTH, 163, cm, [...]
--- OUTSIDE RECORDS SUMMARY | 2022-05-26 00:15 | XMS_ITS | Continuity of Care Document ---
Author Name Unknown Organization [facility] Address [address] [place] [address]- Care Team Providers Care Shoe Shanker Name Role Phone Janessa Rowland MD Primary Care Physician [phone] Encounter [facility] [place] Date(s): 11/08/19 - 12/08/19 [facility] [address] [address]- [facility] Allergies, Adverse Reactions, Alerts Substance Reaction Severity Status NKA Active Medications MiraLax oral powder for reconstitution = 17 Gm, By Mouth, Daily, PRN Constipation, dissolve in water before taking, # 527 Gm, 0 Refills, Maintenance, 10/28/19 10:57:00 EDT, REC Powder, [email or web address] #[id number], 17 Gm By Mouth Daily,PRN:Constipation,Instr:dissolve in water before taking,... Start Date: 10/28/19 Status: Ordered Multivitamins with Folic Acid 1 mg oral capsule See Instructions, TAKE ONE DAILY BY MOUTH, # 100 capsule, 2 Refills, Maintenance, 04/28/19 14:25:00EST, [facility] #[id number], TAKE ONE DAILY BY MOUTH, 163, cm, 10/19/18 12:36:00 EDT, Height, 90, kg, 09/05/18 5:39:00 EDT, Dry Weight Start Date: 04/28/19 Status: Ordered Proctosol-HC 2.5% topical cream 1 applicator, Topically, 3 times a day, # 20 Gm, 0 Refills, Maintenance, 11/26/19 22:36:00 EDT, [facility] #[id number], 1 applicator Topically 3 times a day, 163, cm, 11/10/19 10:22:00 EDT, Height, 90, kg, 09/05/18 5:39:00 EDT, Dry Weight Start Date: 11/26/19 Status: Ordered Proctozone HC 2.5% rectal cream with applicator 1 application, Rectally, 2 times a day, # 30 Gm, 0 Refills, Maintenance, 11/26/19 22:35:00 EDT, Cream, [facility] #[id number], 1 application Rectally 2 times a day, 163, cm, 11/10/19 10:22:00 EDT, Height, 90, kg, 09/05/18 5:39:00 EDT, Dry Weight Start Date: 11/26/19 Status: Ordered Proctozone HC 2.5% topical cream 1 applicator, Topically, 3 times a day, apply in a thin film to the affected skin and rub in gentlyand completely, # 30 Gm, 0 Refills, Maintenance, 10/28/19 11:00:00 EDT, [facility] #03007, 1 applicator Topically 3 times a day,Instr:apply [...] 12/02/19 10:21:00 EDT, Route to Pharmacy Electronically, [facility] #[id number], 163, cm, 12/02/19 9:52:00 EDT, Height, 90, kg, 09/05/18 5:39:00 EDT... Start Date: 12/02/19 Status: Ordered witch jena 50% topical pad 1 each, Topically, 4 times a day, # 100 each, 0 Refills, Acute 01/03/20 10:13:00 EST, 12/02/19 10:13:00 EDT, [facility] #[id number], 1 each Topically 4 times a day, 163, cm, 12/02/19 9:52:00 EDT, Height, 90, kg, 09/05/18 5:39:00 EDT, Dry Weight Start Date: 12/02/19 Stop Date: 01/03/20 Status: Ordered Problem List Condition Effective Dates Status Health Status Inform ant H/O seasonal allergies(Confirmed) Active Constipation(Confirmed) Active Orthodox or spiritual belie fs affecting medical care(Confirmed) Active History of polyhydramnios(Confirmed) Active Hemorrhoid(Confirmed) Active History of herpes genitalis(Confirmed) Active Currently (Confirmed) Active H/O Rubella non-immune status(Confirmed) 01/2018 Active H/O Maternal varicella(Confirmed) 01/2018 Active Social History Social History Type Response Smoking Status Former smoker, quit more than 30 days ago entered on: 09/04/18 Sex Female
--- OUTSIDE RECORDS SUMMARY | 2022-05-26 00:15 | XMS_ITS | Continuity of Care Document ---
Author Name Unknown Organization [facility] Address [address] [place] [address]- Care Team Providers Care Machine Learning Intern Name Role Phone Janessa Rowland MD Primary Care Physician [phone] [facility] [place] Date(s): 07/05/19 - 07/12/[address] [address]- [facility] Attending Physician: Carie Beltran MD Allergies, Adverse Reactions, Alerts Substance Reaction [...] 100 capsule, 2 Refills, Maintenance, 04/28/19 14:25:00EST, [facility] #[id number], TAKE ONE DAILY BY MOUTH, 163, cm, [...] H/O Maternal varicella(Confirmed) 01/2018 Active 1In 2011 Vital Signs Most recent to oldest [Reference Range]: 1 Height 163 cm (07/05/19 8:59 AM) Social History Social History Type Response Smoking Status Former smoker, quit more than 30 days ago entered on: 09/04/18 Sex
--- OUTSIDE RECORDS SUMMARY | 2022-05-26 00:15 | XMS_ITS | Continuity of Care Document ---
Author Name Unknown Organization [facility] Address [address] [place] [address]- Care Team Providers Care Team Otr Truck Driver Name Role Phone Janessa Rowland MD Primary Care Physician Encounter [facility] [place] Date(s): 01/23/20 - 02/22/[address] [address]- Allergies, Adverse Reactions, Alerts Substance Reaction Severity Status NKA Active Medications acetaminophen 325 mg oral tablet 650 mg, By Mouth, Every 4 hours, PRN, (1-3), may give 325mg per patient preference and re-dose [id number] within 4 hours, if needed. Patient should only receive a total of 650mg of Acetaminophen every 4 hours., # 40 tablet, Refills 0, Tot. Refills 0... Start Date: 12/24/19 Status: Ordered docusate sodium 100 mg oral capsule 100 mg, 1, capsule, By Mouth, 2 times a day, # 60 capsule, Refills 0, Tot. Refills 0, Maintenance, 12/24/19 6:46:00 EDT, Route to Pharmacy Electronically, [facility] #[id number], 162, cm, 12/24/19 1:10:00 EDT, Height, 95.5, [...] Refills, Maintenance, 10/28/19 10:57:00 EDT, REC Powder, [facility] #[id number], 17 Gm By Mouth Daily,PRN:Constipation,Instr:dissolve in water before taking,... Start Date: 10/28/19 Status: Ordered Multivitamins with Folic Acid 1 mg oral capsule See Instructions, TAKE ONE DAILY BY MOUTH, # 100 capsule, 2 Refills, Maintenance, 04/28/19 14:25:00EST, [facility] #[id number], TAKE ONE DAILY BY MOUTH, 163, cm, 10/19/18 12:36:00 EDT, Height, 90, kg, 09/05/18 5:39:00 EDT, Dry Weight Start Date: 04/28/19 Status: Ordered Proctozone HC 2.5% topical cream 1 applicator, Topically, 3 times a day, apply in a thin film to the affected skin and rub in gentlyand completely, # 30 Gm, 0 Refills, Maintenance, 10/28/19 11:00:00 EDT, [facility] #58487, 1 applicator Topically 3 times a day,Instr:apply i... Start Date: 10/28/19 Status: Ordered Valtrex 500 mg oral tablet 500 mg, 1, tablet, By Mouth, Every 12 hours, # 60 tablet, Refills 0, Tot. Refills 0, Maintenance, 12/02/19 10:21:00 EDT, Route to Pharmacy Electronically, [facility] #86134, 163, cm, 12/02/19 9:52:00 EDT, Height, 90, kg, 09/05/18 5:39:00 EDT... Start Date: 12/02/19 Status: Ordered Problem List Condition Effective Dates Status Health Status Inform ant H/O seasonal allergies(Confirmed) Active Constipation(Confirmed) Active Jew or spiritual belie fs affecting medical care(Confirmed) Active History of polyhydramnios(Confirmed) Active Hemorrhoid(Confirmed) Active Currently (Confirmed) Active H/O Maternal varicella(Confirmed) 01/2018 Active Social History Social History Type Response Smoking Status Former smoker, quit more than 30 days ago entered on: 09/04/18 Sex Female
--- OUTSIDE RECORDS SUMMARY | 2022-05-26 00:15 | XMS_ITS | Continuity of Care Document ---
Author Name Unknown Organization [facility] Address [address] [place] [id number]- Care Team Providers Care Flatbed Truck Driver Name Role Phone Janessa Rowland MD Primary Care Physician [phone] [place] [facility] [place] - 06/16/[address] [address]- Attending Physician: Nora Carroll CNM Admitting Physician: Nora Carroll CNM Allergies, Adverse Reactions, Alerts Substance Reaction Severity Status NKA Active Medications acetaminophen 325 mg oral tablet 650 mg, By Mouth, Every 4 hours, PRN, (1-3), may give 325mg per patient preference and re-dose [id number] within 4 hours, if needed. Patient should only receive a total of 650mg of Acetaminophen every 4 hours., # 40 tablet, Refills 0, Tot. Refills 0... Start Date: 12/24/19 Status: Ordered docusate sodium 100 mg oral capsule 100 mg, 1, capsule, By Mouth, 2 times a day, # 60 capsule, Refills 0, Tot. Refills 0, Maintenance, 12/24/19 6:46:00 EDT, Route to Pharmacy Electronically, [facility] #[id number], 162, cm, 12/24/19 1:10:00 EDT, Height, 95.5, [...] Refills, Maintenance, 10/28/19 10:57:00 EDT, REC Powder, [facility] #[id number], 17 Gm By Mouth Daily,PRN:Constipation,Instr:dissolve in water before taking,... Start Date: 10/28/19 Status: Ordered Multivitamins with Folic Acid 1 mg oral capsule See Instructions, TAKE ONE DAILY BY MOUTH, # 100 capsule, 2 Refills, Maintenance, 04/28/19 14:25:00EST, [facility] #[id number], TAKE ONE DAILY BY MOUTH, 163, cm, 10/19/18 12:36:00 EDT, Height, 90, kg, 09/05/18 5:39:00 EDT, Dry Weight Start Date: 04/28/19 Status: Ordered Proctozone HC 2.5% topical cream 1 applicator, Topically, 3 times a day, apply in a thin film to the affected skin and rub in gentlyand completely, # 30 Gm, 0 Refills, Maintenance, 10/28/19 11:00:00 EDT, [facility] #[id number], 1 applicator Topically 3 times a day,Instr:apply i... Start Date: 10/28/19 Status: Ordered Valtrex 500 mg oral tablet 500 mg, 1, tablet, By Mouth, Every 12 hours, # 60 tablet, Refills 0, Tot. Refills 0, Maintenance, 12/02/19 10:21:00 EDT, Route to Pharmacy Electronically, [facility] #[id number], 163, cm, 12/02/19 9:52:00 EDT, Height, 90, kg, 09/05/18 5:39:00 EDT... Start Date: 12/02/19 Status: Ordered Problem List Condition Effective Dates Status Health Status Inform ant H/O seasonal allergies(Confirmed) Active Constipation(Confirmed) Active Orthodoxy or spiritual belie fs affecting medical care(Confirmed) Active History of polyhydramnios(Confirmed) Active Hemorrhoid(Confirmed) Active Currently (Confirmed) Active H/O Maternal varicella(Confirmed) 01/2018 Active Social History Social History Type Response Smoking Status Former smoker, quit more than 30 days ago entered on: 09/04/18 Sex Female
--- OUTSIDE RECORDS SUMMARY | 2022-05-26 00:15 | XMS_ITS | Continuity of Care Document ---
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 Patient should only receive a total of 650mg of Acetaminophen every 4 hours., # 40 tablet, Refills 0, Tot. Refills 0... Start Date: 12/24/19 Status: Ordered docusate sodium 100 mg oral capsule 100 mg, 1, capsule, By Mouth, 2 times a day, # 60 capsule, Refills 0, Tot. Refills 0, Maintenance, 12/24/19 6:46:00 EDT, Route to Pharmacy Electronically, [facility] #[id number], 162, cm, 12/24/19 1:10:00 EDT, Height, 95.5, [...] Refills, Maintenance, 10/28/19 10:57:00 EDT, REC Powder, [facility] #[id number], 17 Gm By Mouth Daily,PRN:Constipation,Instr:dissolve in water before taking,... Start Date: 10/28/19 Status: Ordered Multivitamins with Folic Acid 1 mg oral capsule See Instructions, TAKE ONE DAILY BY MOUTH, # 100 capsule, 2 Refills, Maintenance, 04/28/19 14:25:00EST, [facility] #[id number], TAKE ONE DAILY BY MOUTH, 163, cm, 10/19/18 12:36:00 EDT, Height, 90, kg, 09/05/18 5:39:00 EDT, Dry Weight Start Date: 04/28/19 Status: Ordered Proctozone HC 2.5% topical cream 1 applicator, Topically, 3 times a day, apply in a thin film to the affected skin and rub in gentlyand completely, # 30 Gm, 0 Refills, Maintenance, 10/28/19 11:00:00 EDT, [facility] #[id number], 1 applicator Topically 3 times a day,Instr:apply i... Start Date: 10/28/19 Status: Ordered Valtrex 500 mg oral tablet 500 mg, 1, tablet, By Mouth, Every 12 hours, # 60 tablet, Refills 0, Tot. Refills 0, Maintenance, 12/02/19 10:21:00 EDT, Route to Pharmacy Electronically, [facility] #[id number], 163, cm, 12/02/19 9:52:00 EDT, Height, 90, kg, 09/05/18 5:39:00 EDT... Start Date: 12/02/19 Status: Ordered Problem List Condition Effective Dates Status Health Status Inform ant H/O seasonal allergies(Confirmed) Active Constipation(Confirmed) Active Jewish or spiritual belie fs affecting medical care(Confirmed) Active History of polyhydramnios(Confirmed) Active Hemorrhoid(Confirmed) Active Currently (Confirmed) Active H/O Maternal varicella(Confirmed) 01/2018 Active Social History Social History Type Response Smoking Status Former smoker, quit more than 30 days ago entered on: 09/04/18 Sex Female
--- NOTE | 2022-05-26 00:24 | ED_ITS ---
HPI - URI/Sore Throat General Chief Complaint: Upper Respiratory Symptoms Stated Complaint: flu like symptoms, ammonia? Time Seen by Provider: 05/26/22 00:03 History of Present Illness HPI Narrative: Patient is a 27-year-old female presents today with having coughing congestion upper respiratory symptoms that is been ongoing for over week. There is no fever no chills. Positive history of asthma never been admitted to the hospital in the past. Patient cough nonproductive in nature. She has never been vaccinated for COVID. No focal weakness. No chest pain or diaphoresis. Patient is from home. Related Data Previous Rx's Medication Instructions Recorded azithromycin 250 mg tablet See Rx Instructions PO .COMPLEX 05/26/22 upper resp infection #6 tabs prednisone 20 mg tablet 40 mg PO DAILY #10 tabs 05/26/22 Allergies Allergy/AdvReac Type Severity Reaction Status Date / Time No Known Allergies Allergy Unverified 11/05/20 22:41 [No Known Allergies*] Review of Systems Review of Systems: Positive coughing congestion upper respiratory symptoms Yes all other systems are reviewed and are negative [facility] Past Medical History Medical History (Updated 05/26/22 @ 01:30 by Ekta Yepez MD) No known health problems Social History Social History Advance Directives: No Physical Exam Vital Signs: Vital Signs: Last Vital Signs Temp 98 F 05/25/22 23:46 Pulse 116 H 05/25/22 23:46 Resp 16 05/25/22 23:46 BP 109/74 05/25/22 23:46 Pulse Ox 98 05/25/22 23:46 O2 Del Method Room Air 05/25/22 23:46 BMI result Body Mass Index 30.9 Appearance: Alert. Oriented X3. No acute distress. Eyes: Pupils equal, round and reactive to light. ENT: Pharynx normal. Neck: Normal inspection. Neck supple. No lymph nodes noted. No crepitus CVS: Normal heart rate and rhythm. Pulses normal. Normal S1 and S2 Respiratory: No respiratory distress. Breath sounds normal. Minimal Wheezing. No rales Abdomen: Soft and nontender. No rigidity. No distention. good BS x4 Skin: Skin warm and dry. Normal skin color. Normal skin turgor. Extremities: No lower extremity edema. Neurovascular intact to all extremities. No Lacerations. No Rash Neuro: Oriented X 3. No motor deficit. No sensory deficit. Moving all extermit ies. No slurred speech Medical Decision Making Differential Diagnosis Patient's flu RSV COVID walled negative. Lungs were moving good air. However there is a slight wheeze positive coughing upper respiratory symptoms. Will give a Z-Nader. I interpreted the patient's chest x-ray be grossly negative. There is no evidence of pneumonia no evidence of pneumothorax no evidence of rib fracture. Will discharge patient home. Close follow-up on an outpatient basis Lab Data MDM Lab Attestation statement: I reviewed the patient's lab results. Labs: Lab Results 05/26/22 05/26/22 Range/Units 00:13 00:13 COVID-19 (RYAN) Negative (Negative) COVID-19 Clin Com See Note Influenza Type A (SUDEEP) Negative (Negative) Influenza Type B (SUDEEP) Negative (Negative) Influenza A & B Note See Note Independent Interpretation I performed an independent interpretation of an: Plain X-Ray Interpretation: Negative Radiology Impression Discussion of test interpretation with radiology: I have reviewed the radiologist's reading. Discharge Plan Discharge Clinical Impression: Upper respiratory infection Patient Disposition: Home, Self-Care Instructions: Acute Bronchitis (ED) Prescriptions: New azithromycin 250 mg tablet See Rx Instructions .ROUTE .COMPLEX Qty: 6 0RF Rx Instructions: take 500 mg today (day 1), then 250 mg for 4 days (days 2-5) prednisone 20 mg tablet 40 mg PO DAILY Qty: 10 0RF Referrals: Physician,Unknown J [Primary Care Provider] - 05/28/22
[2022-05-26 00:35] LABS: COVID-19 Test Negative (Negative); IDNOW Serial# 08D9AD1C; IDNOW Serial# BCCEAD1C; Influenza A Negative (Negative); Influenza B2 Negative (Negative)
[2022-05-26] MEDS: Albuterol Sulfate 90 MCG 8 GM INHALER 2 PUFF INHALE (01:41)
== END 2022-05-26 01:49 | disposition home or self-care (01) ==
PROVIDERS: Emergency Provider Emergency Medicine Emergency Medical Services
DX: J06.9 Acute upper respiratory infection, unspecified (principal); Z20.822 Contact with and (suspected) exposure to COVID-19; Z20.828 Contact with and (suspected) exposure to other viral communicable diseases; Z79.899 Other long term (current) drug therapy
CPT/HCPCS: 71046; 87502; 87635; 99284